=== PATIENT | male | born 1940 | race Caucasian/White ===

== ENCOUNTER 2016-06-25 07:25 | Outpatient (CLI) | payer MEDICARE, BC ==
[~2016-06-25] VITALS: Ht 175.3 cm; Wt 86.4 kg
--- NOTE | ~2016-06-25 | HEMODYNAMI ---
PATIENT:LUBA PARTIDA MEDICAL RECORD: [id number] : 44 LOCATION:D.CAT ADMISSION DATE: 06/25/16 Generatedon:06/25/201610:50 Patient name: LUBA PARTIDA Patient #: [id number] SSN: : 1940 Date of study: 06/25/2016 Page: Of Hemodynamic Procedure Report Patient Data Patient Demographics Procedure consent was obtained First Name: LUBA Gender: Male Last Name: HELGA : 1940 [facility] Initial: L Age: 75 year(s) Patient #: [id number] Race: Additional ID: [id number] Contact details Address: [address] [place] [address] State: [place] City: [facility] Zip code: [address] Past Medical History Allergies: No known allergies Admission Admission Data Admission Date: 06/25/2016 Admission Time: 7:25 Insurance Payor: Medicare, Private health insurance Height (in.): 69 BSA: 2.02 (m2) Height (cm.): 175.26 BMI: 28.06 (kg/m2) Weight (lbs.): 190 Weight (kg.): 86.18 Medications upon Admission Medications Dosage Times Administered Last Remarks per Delivery Day Date and Time Clopidogrel Yes 06/25/2016 0:00 Lab Results Lab Result Date: 06/25/2016 Lab Result Time: 8:00 Biochemistry Name Units Result Min Max Creatinine mg/dl 1.1 --(--*-)-- 0.6 1.3 CBC Name Units Result Min Max Hemoglobin g/dl 11.9 *-(----)-- 13.5 17.5 Procedure Procedure Types Cath Procedure Diagnostic Procedure LHC LHC w/Coronaries w/Grafts PCI Procedure Coronary Stent Initial Miscellaneous Procedures Moderate Sedation up to 30 minutes Procedure Description Procedure Date Procedure Date: 06/25/2016 Procedure Start Time: 10:17 Procedure End Time: 10:44 Procedure Staff Name Function Soto Lopez MD Performing Physician Hero Patel RT Scrub Dario Odonnell RT Scissors Sharpener Amaury Nicole RT Monitor Petra Bailey RN Nurse Procedure Data Cath Procedure Fluoroscopy Diagnostic fluoroscopy Total fluoroscopy Time: time: 11.3 min 11.3 min Diagnostic fluoroscopy Total fluoroscopy dose: dose: 1626 mGy 1626 mGy Contrast Material Contrast Material Type Amount (ml) Isovue 300 226 Entry Location Entry Primary Successful Side Size Upsize Upsize Entry Closure Succes sful Closure Location (Fr) 1 (Fr) 2 (Fr) Remarks Device Remarks Femoral Right 5 Fr 6 Fr Vascade artery Short Closure System Estimated blood loss: 10 ml Diagnostic catheters Device Type Used For End Catheter Placement Cordis 5Fr Pigtail Procedure Catheter (MP) Cordis 5Fr JL 4.0 Procedure Catheter (MP) Cordis 5Fr 3DRC Catheter Procedure (MP) Cordis Infinity 5Fr AR 2 Procedure MOD catheter Procedure Complications No complications Procedure Medications Medication Administration Route Dosage Oxygen NC 2 l/min Lidocaine 2% added to field 20 Heparin Flush Bag added to field 2 bags (1000units/500ml NS) 0.9% NaCl I.V. 100 ml/hr Versed I.V. 1 mg Fentanyl I.V. 50 mcg Versed I.V. 1 mg Fentanyl I.V. 50 mcg Fentanyl I.V. 50 mcg Versed I.V. 1 mg Heparin Bolus I.V. 4000 units Versed I.V. 1 mg Fentanyl I.V. 50 mcg Hemodynamics Rest BSA: 2.02 (m2) HGB: 11.9 (g/dl) O2 Consumption: Estimated: 226.99 (ml/min) O2 Co nsumption indexed: Estimated:112.37 (ml/min/m) Heart Rate: 62 (bpm) Snapshots Pre Cath Intra NCS Post Cath Vital Signs Time Heart Resp SPO2 etCO2 XV5ewrm NIBP (mmHg) Rhythm Pain Sedation Rate (ipm) (%) (mmHg) (mmHg) Status Level (bpm) 10:04:15 59 16 100 0 0 168/77(138) NSR 0 (11) 10(A) , No pain 10:08:27 53 17 99 0 0 139/61(122) NSR 0 (11) 10(A) , No pain 10:12:45 51 18 98 0 0 127/63(105) NSR 0 (11) 10(A) , No pain 10:17:03 52 18 96 0 0 134/55(113) NSR 0 (11) 9(A) , No pain 10:21:21 53 18 95 0 0 128/61(107) NSR 0 (11) 9(A) , No pain 10:25:39 53 17 95 0 0 130/56(106) NSR 0 (11) 9(A) , No pain 10:29:59 55 16 95 0 0 115/49(97) NSR 0 (11) 9(A) , No pain 10:34:14 55 15 93 0 0 118/55(100) NSR 0 (11) 9(A) , No pain 10:38:25 60 16 95 0 0 117/62(97) NSR 0 (11) 9(A) , No pain 10:42:37 64 17 94 0 0 121/59(109) NSR 0 (11) 10(A) , No pain Medications Time Medication Route Dose Verified Delivered Reason Notes Effectiveness by by 10:04:03 Oxygen NC 2 Soto Buffie used for l/min John Bailey RN procedure 10:04:09 Lidocaine 2% added 20ml Soto Soto for local to vial John Lopez MD anesthetic field 10:04:15 Heparin Flush added 2 Soto Soto used for Bag to bags John Lopez MD procedure (1000units/500ml field NS) 10:04:24 0.9% NaCl I.V. 100 Soto Buffie Per physician ml/hr John Bailey RN 10:07:40 Versed I.V. 1 mg Soto Buffie for sedation John Bailey RN 10:07:46 Fentanyl I.V. 50 Soto Buffie for sedation mcg John Bailey RN 10:11:06 Versed I.V. 1 mg Soto Buffie for sedation John Bailey RN 10:11:10 Fentanyl I.V. 50 Soto Buffie for sedation mcg John Bailey RN 10:14:18 Fentanyl I.V. 50 Soto Buffie for sedation mcg John Bailey RN 10:16:20 Versed I.V. 1 mg Soto Buffie for sedation John Bailey RN 10:26:40 Heparin Bolus I.V. 4000 Soto Buffie for verifi ed units John Bailey RN anticoagulation with dr lopez\ 10:34:35 Versed I.V. 1 mg Soto Lambert for sedation John Bailey RN 10:34:40 Fentanyl I.V. 50 Soto Lambert for sedation [facility] John Bailey RN Procedure Log Time Note 9:35:51 Dario Odonnell RT(R) sent for patient. Start room use. 9:47:19 Informed consent obtained and on chart 9:47:53 Time tracking: Regular hours 9:47:56 Plan of Care:Hemodynamics will remain stable., Cardiac rhythm will remain stable., Comfort level will be maintained., Respiratory function will remain adequate., Patient/ family verbilizes understanding of procedure., Procedure tolerated without complication., Recovers from procedure without complications.. 9:54:44 Patient received from Post Procedure Room to [facility] 1 Alert and oriented. Tansferred to table in Supine position. 9:54:45 Warm blankets applied, and jose hugger turned on for patient comfort. 9:54:46 Correct patient and procedure confirmed by team. 9:54:47 ECG and BP/O2 sat monitors applied to patient. 10:03:02 Vital chart was started 10:03:04 Baseline sample Acquired. 10:03:12 Rhythm: sinus rhythm 10:03:14 Full Disclosure recording started 10:04:03 Oxygen 2 l/min NC was given by Petra Bailey RN; used for procedure; 10:04:09 Lidocaine 2% 20ml vial added to field was given by Soto Lopez MD; for local anesthetic; 10:04:15 Heparin Flush Bag (1000units/500ml NS) 2 bags added to field was given by Soto Lopez MD; used for procedure; 10:04:24 0.9% NaCl 100 ml/hr I.V. was given by Petra Bailey RN; Per physician; 10:04:32 H&P Date Dictated: 06/11/2016 Within 30 days and on chart., H&P Addendum completed by physician on day of procedure. (MUST COMPLETE FOR ALL OUTPATIENTS). 10:04:33 Pre-procedure instructions explained to patient. 10:04:34 Pre-op teaching completed and patient verbalized understanding. 10:04:35 Family in waiting room. 10:04:37 Patient NPO since Midnight. 10:04:44 Patient allergic to No known allergies 10:04:46 Is the patient allergic to Iodine/contrast media? No. 10:04:50 Is patient on blood thinner?Yes 10:04:53 ACC The patient was administered the following blood thiners within the last 24 hours: ACCPlavix 10:04:56 Patient diabetic? No. 10:04:58 Previous problem with sedation/anesthesia? No ? 10:04:59 Snore? Yes 10:05:00 Sleep apnea? No 10:05:00 Deviated septum? No 10:05:01 Opens mouth fully? Yes 10:05:02 Sticks out tongue? Yes 10:05:04 Airway obstruction? No ? 10:05:14 Dentures? Yes IN 10:05:18 Pre procedure: right dorsailis pedis pulse 1+ Palpable, but thready & weak; easily obliterated 10:05:20 Patient pain scale 0/10 ?. 10:05:42 IV patent on arrival in left hand with 0.9% NaCl at KVO. 10:05:45 Lab results completed and on chart. 10:05:49 Right groin area was prepped with chlora-prep and draped in sterile fashion 10:05:50 Alarms reviewed by R. N. 10:05:51 Sharps counted by scrub and verified by R.N. 10:07:12 --------ALL STOP TIME OUT------ 10:07:13 Final Timeout: patient, procedure, and site verified with staff and physician. All members of the team are in agreement. 10:07:16 Right groin site verified by team. 10:07:19 Physical assessment completed. ASA score P 2 - A patient with mild systemic disease as per Soto Lopez MD. 10:07:23 Sedation plan: IV Moderate Sedation Versed, Fentanyl 10:07:36 Use device set Femoral Dx 10:07:37 Tegaderm 4 x 4 opened to sterile field. 10:07:38 Acist Manifold opened to sterile field. 10:07:39 Acist Hand Control opened to sterile field. 10:07:40 Versed 1 mg I.V. was given by Petra Bailey RN; for sedation; 10:07:41 Acist Syringe opened to sterile field. 10:07:41 Bag Decanter opened to sterile field. 10:07:42 Cardinal Cath Pack opened to sterile field. 10:07:43 Terumo 5Fr Harlan Sheath opened to sterile field. 10:07:43 St Haroon 260cm J .035 wire opened to sterile field. 10:07:45 Cordis Infinity 5Fr Multipack catheter opened to sterile field. 10:07:46 Fentanyl 50 mcg I.V. was given by Petra Bailey RN; for sedation; 10:11:06 Versed 1 mg I.V. was given by Petra Bailey RN; for sedation; 10:11:10 Fentanyl 50 mcg I.V. was given by Petra Bailey RN; for sedation; 10:12:33 Lab Result : Hemoglobin 11.9 g/dl 10:12:33 Lab Result : Creatinine 1.1 mg/dl 10:12:41 Patient Height : 69 inches 10:12:47 Patient Weight : 190 lbs 10:12:50 Insurance Payor : Private health insurance, Medicare 10:14:18 Fentanyl 50 mcg I.V. was given by Petra Bailey RN; for sedation; 10:16:20 Versed 1 mg I.V. was given by Petra Bailey RN; for sedation; 10:17:38 Procedure started. 10:17:42 Local anesthetic to right femoral artery with Lidocaine 2% by Soto Lopez MD.INITIAL ACCESS ONLY 10:17:51 A 5 Fr sheath was inserted into the Right Femoral artery 10:19:00 A Cordis 5Fr Pigtail Catheter (MP) was advanced over the wire and used for Procedure. 10:19:16 LV gram done using HOOD 10:19:20 Injector settings: Ml/sec: 10, Volume: 20, 10:19:42 EF : 55 % 10:19:44 Catheter exchanged over wire. 10:19:51 A Cordis 5Fr JL 4.0 Catheter (MP) was advanced over the wire and used for Procedure. 10:20:24 LCA angiography performed. 10:20:54 Malcolm Whisper J 300cm 0.014 guide wire opened to sterile field. 10:20:55 Terumo 6Fr Harlan Sheath opened to sterile field. 10:20:56 Fotolia BasixCompak Inflation Kit opened to sterile field. 10:21:02 Catheter exchanged over wire. 10:21:07 A Cordis 5Fr 3DRC Catheter (MP) was advanced over the wire and used for Procedure. 10:21:18 PRINCE to LAD angiography performed. 10:22:39 RCA angiography performed. 10:23:35 SVG to OM angiography performed. 10:23:38 Catheter exchanged over wire. 10:24:06 Sheath upsized to a 6 Fr Short. 10:24:28 A Cordis Infinity 5Fr AR 2 MOD catheter was advanced over the wire and used for Procedure. 10:25:06 SVG to Diag angiography performed. 10:25:29 Catheter removed. 10:25:39 Cordis 6FR XBLAD 4.0 guide catheter opened to sterile field. 10:25:46 Proceeding to intervention. 10:26:40 Heparin Bolus 4000 units I.V. was given by Petra Bailey RN; for anticoagulation; verified with dr lopez\ 10:27:59 6 Fr XBLAD 4 guide catheter was inserted over the wire 10:28:03 whisper wire advanced. 10:28:58 ACC PCI Site: OM2 has 99% stenosis. 10:29:00 ACC Pre-intervention CLARK Flow is 1. 10:30:22 Malcolm Fielder XT J 300cm 0.014 guide wire opened to sterile field. 10:30:35 Wire removed. unable to cross lesion. 10:30:43 fielder XT wire advanced. 10:32:16 Wire advanced across lesion. 10:32:55 The Ramona Sci [place] 2.5 X 15 balloon was advanced and then removed because of failure to cross lesion 10:34:35 Versed 1 mg I.V. was given by Petra Bailey RN; for sedation; 10:34:40 Fentanyl 50 mcg I.V. was given by Petra Bailey RN; for sedation; 10:35:17 Inflation number: 1 A Euphora 1.5 x 15 Balloon was prepped and advanced across the 2nd Ob Tiffany, then inflated to 21 BOBBY for 0:10 (min:sec). 10:35:37 Balloon removed over the wire. 10:36:35 Inflation number: 2 A Ramona Sci [place] 2.5 X 15 balloon was prepped and advanced across the 2nd Ob Tiffany, then inflated to 13 BOBBY for 0:10 (min:sec). 10:36:44 Balloon removed over the wire. 10:38:59 Inflation Number: 3 A Umthunzitronic Resolute 2.25 X 8 stent was prepped and advanced across the 2nd Ob Tiffany. The stent was deployed at 17 BOBBY for 0:10 (min:sec). 10:41:48 ACC Post-intervention CLARK Flow is 3. 10:41:48 Stent catheter was removed intact over wire. 10:41:49 Wire removed. 10:41:50 Guide catheter removed. 10:41:59 Vascade 6/7 Fr Closure Device opened to sterile field. 10:42:19 Sheath removed intact; hemostasis achieved with Vascade Closure System to the Right Femoral artery. 10:42:46 Procedure ended.(Physican Out) 10:42:54 Fluoroscopy time 11.30 minutes. 10:43:00 Fluoroscopy dose: 1626 mGy 10:43:00 Flurop Dose total: 1626 10:43:12 Contrast amount:Isovue 300 226ml. 10:43:14 Sharps counted by scrub and verified by R.N. 10:43:18 Insertion/operative site no bleeding no hematoma. 10:43:21 Post-op/insertion site Right Femoral artery dressed using a 4 x 4 and Tegaderm. 10:43:25 Post right femoral artery:stable, soft, clean and dry 10:43:33 Post Procedure Pulses reassessed and unchanged 10:43:36 Post-procedure physical assessment completed. ASA score P 2 - A patient with mild systemic disease as per Soto Lopez MD. 10:43:38 Post procedure rhythm: unchanged. 10:43:40 Estimated blood loss: 10 ml 10:43:42 Post procedure instruction explained to patient.Patient verbalizes understanding. 10:43:42 Patient needs reinforcement of post procedure teaching. 10:44:14 Procedure type changed to Cath procedure, Diagnostic procedure, LHC, LHC w/Coronaries w/Grafts, PCI procedure, Coronary Stent Initial, Miscellaneous Procedures, Moderate Sedation up to 30 minutes 10:44:39 Procedure and supply charges have been captured, reviewed, submitted and are correct. 10:44:42 Procedure Complication : No complications 10:44:44 Vital chart was stopped 10:44:44 See physician's report for complete and final results. 10:44:46 Report given to Post Procedure Room. 10:44:49 Patient transfered to Post Procedure Room with Stretcher. 10:44:52 Procedure ended. 10:44:52 Full Disclosure recording stopped 10:45:02 ACC-PCI Only Patient was given prescriptions, or instructed by Soto Lopez MD to start/continue the following medications upon discharge: Plavix 10:45:41 End room use (Document Last) Intervention Summary Intervention Notes Time ActionType Lesion and Equipment Action# Pressure Duration Attributes Used 10:32:55 Discard Ramona Balloon Sci [place] 2.5 X 15 balloon 10:35:17 Inflate 2nd Ob Tiffany Euphora 1 21 00:10 balloon 1.5 x 15 Balloon 10:36:35 Inflate 2nd Ob Tiffany Ramona 2 13 00:10 balloon Sci [place] 2.5 X 15 balloon 10:38:59 [address] stent 2nd Ob Tiffany Medtronic 3 17 00:10 Resolute 2.25 X 8 stent Device Usage Item Name Manufacture Quantity Catalog Number Hospital Part Current Mini mal Lot# / Charge Number Stock Stock Serial# Code Tegaderm 4 1 [id number] [id number] [id number] 5 x 4 Acist Acist 1 65347 116800 018920 922668 5 Manifold Medical Systems Inc Acist Hand Acist 1 21246 522678 335599 668638 5 Control Medical Systems Inc Acist Acist 1 07441 884998 364497 913196 20 Syringe Medical Systems Inc Bag Microtek 1 2002S 146224 78043 129599 5 Decanter Medical Inc. Cardinal Cardinal [address] 375653 32136 184522 5 Cath Pack Health Terumo 5Fr Terumo 1 [id number] 554936 611080 320615 [address] Haroon 1 033526 911712 625703 332385 30 260cm J .035 wire Cordis Cardinal 1 [id number] 843939 67785 140856 30 Infinity Health 5Fr Multipack catheter Cordis 5Fr Cardinal 1 798153 5 Pigtail Health Catheter (MP) Cordis 5Fr Cardinal 1 860491 5 JL 4.0 Health Catheter (MP) Malcolm Malcolm 1 [id number] 349180 582209 074755 5 Whisper J Vascular 300cm 0.014 guide wire Terumo 6Fr Terumo 1 [id number] 835640 450786 110730 40 Harlan Sheath Merit Merit 1 [id number] 031650 532916 735304 15 Supercell Medical Inflation Kit Cordis 5Fr Cardinal 1 921974 5 3DRC Health Catheter (MP) Cordis Cardinal 1 [id number] 935867 405498 388082 20 Infinity Health 5Fr AR 2 MOD catheter Cordis 6FR Cardinal 1 [id number] 370806 131139 387909 3 XBLAD 4.0 Health guide catheter Malcolm Malcolm 1 [id number] 215463 384285 715033 5 Fielder XT Vascular J 300cm 0.014 guide wire Ramona Sci Ramona 1 [id number] 138863 076603 172877 1 [id number] VUELOGIC 2.5 X 15 balloon Euphora 1.5 Medtronic 1 [id number] 961171 560915 883371 5 [id number] x 15 Balloon Medtronic Medtronic 1 [id number] 376428 696219 0 [id number] Resolute 2.25 X 8 stent Vascade 10/24 Cardiva 1 [id number] 528364 867445 253121 5 Fr Closure Medical, Device Inc. Signature Audit [place] Stage Time Signature Unsigned Intra-Procedure 06/25/2016 Amaury Nicole 10:50:27 AM RT(R) Signatures Monitor : Amaury Nicole RT Signature : Date : Time : [place] [address] [place] [address]
[~2016-06-25 07:25] MED LIST: AVAPRO300 MG PO; BAYER CHEWABLE81 MG PO; CARDURA1 MG PO; FISH OIL 1,2001 CA1 PO; GLUCOSAMINE HC500 MG PO; HYDROCHLOROTHIA25 MG PO; MULTIPLE VITAMI1 TA1 PO; PLAVIX75 MG PO; PRAVACHOL80 MG PO; PRILOSEC20 MG PO; XALATAN 0.0052.5 ML EACH EYE
[2016-06-25 08:01] VITALS: BP 127/73; Ht 175.3 cm; Wt 86.4 kg
[2016-06-25] MEDS ORDERED: TRICOR145 MG PO (08:01)
[2016-06-25 08:09] LABS: BASOPHILS 0.4 % (0.0-2.0); EOSINOPHILS 3.5 % (0-7); HEMATOCRIT 35.4 % (42.0-54.0); HEMOGLOBIN 11.9 g/dL (13.5-17.5); MCH 32.2 pg (26.0-34.0); MCHC 33.6 g/dL (31.0-37.0); MCV 95.9 fL (80.0-100.0); NEUTROPHILS 74.1 % (40-80); PLATELET COUNT 241 10x3/uL (130-400); RBC 3.69 10x6/uL (4.20-6.10); RDW 12.8 % (11.5-14.5); WBC 5.2 10x3/uL (4.8-10.8)
[2016-06-25 08:19] LABS: CALCIUM 9.6 mg/dL (8.5-10.1); CARBON DIOXIDE 26.7 mmol/L (21.0-32.0); CREATININE - SERUM 1.1 mg/dL (0.6-1.3); POTASSIUM - SERUM 3.7 mmol/L (3.5-5.1)
--- NOTE | 2016-06-25 11:36 | NUR ---
1115 LYING FLAT, ROOM AIR WITH NO RESP DISTRESS. SBRADY RATE 54 W NO C/O CHEST PAIN. PULSES PALP X 4. R GROIN 6F VASCADE C/D/I WITH NO HEMATOMA OR BLEEDING. AT BEDSIDE.
[2016-06-25] MEDS ORDERED: PLAVIX75 MG PO (11:48)
[2016-06-25] MEDS ORDERED: BAYER CHEWABLE81 MG PO (11:48)
--- NOTE | 2016-06-25 12:12 | NUR ---
400CC URINE VOIDED VIA URINAL. ALL VITALS WNL. R GROIN 6F VASCADE C/D/I WITH NO HEMATOMA OR BLEEDING.
--- NOTE | 2016-06-25 12:24 | NUR ---
SANDWICH AND SODA TO BEDSIDE WITH TO ASSIST. VSS WITH CHEST PAIN DENIED. 6 FR VASCADE R/GROIN CDI
--- NOTE | 2016-06-25 12:51 | NUR ---
6 FR VASCADE R/GROIN CDI NO BLEEDING NO HEMATOMA NOTED. CHEST PAIN IS DENIED WITH VSS. AT SIDE WILL MONITOR
--- NOTE | 2016-06-25 13:31 | NUR ---
RESTING WITH EYES CLOSED, ROOM AIR, VITALS ALL WNL. R GROIN 6F VASCADE C/D/I WITH NO HEMATOMA OR BLEEDING.
--- NOTE | 2016-06-25 14:33 | NUR ---
HOB ELEVATED, WILL MONITOR R GROIN FOR BLEEDING. ALL VITALS WNL.
--- NOTE | 2016-06-25 15:23 | NUR ---
PIV REMOVED FROM LEFT HAND WITH BANDAID APPLIED. UP TO BEDSIDE TO DRESS WITH ASSIST FROM . AMBULATED TO BATHROOM TO VOID. R GROIN REMAINS C/D/I WITH NO HEMATOMA OR BLEEDING. D/C INSTRUCTIONS DISCUSSED WITH PATIENT AND FAMILY. WHEELED OUT VIA WHEELCHAIR BY CATH TEAM.
--- NOTE | 2016-06-28 13:59 | OP ---
PATIENT NAME: LUBA PARTIDA MEDICAL RECORD: [id number] :42 LOCATION:D.CAT ADMISSION DATE: SURGEON: SAMANTHA DE LA VEGA MD DATE OF OPERATION: 06/25/2016 PROCEDURES: 1. PTCA stent of the left circumflex. 2. Left heart catheterization. 3. Selective coronary angiography. 4. Vein graft angiography. 5. PRINCE angiography. INDICATION: Angina and coronary artery disease. PROCEDURE IN DETAIL: After informed consent was obtained and after detailed explanation of risks, benefits as well as alternative therapies, the patient elected to proceed with angiogram and angioplasty. The right femoral area was prepped and draped in normal sterile fashion. The right femoral artery was cannulated via modified Seldinger technique with placement of 6-Ukrainian sheath. All catheters exchanged through this sheath. FINDINGS: The left ventriculogram was performed in the standard 30-degree HOOD view reveals preserved cardiac wall motion, ejection fraction 55% to 60%. SELECTIVE CORONARY ANGIOGRAPHY: 1. Left main is with no significant angiographic disease. 2. Left anterior descending is totally occluded. 3. Vein graft to the LAD diagonal is widely patent. 4. PRINCE to the LAD is widely patent. 5. Left circumflex has a high-grade stenosis of the first obtuse marginal as well as the second obtuse marginal, both of these are 95%. 6. Vein graft to the first obtuse marginal is patent. Second obtuse marginal is nongrafted. 7. Right coronary is small and nondominant. PTCA STENT OF THE LEFT CIRCUMFLEX: The second obtuse marginal stent used was a 2.25 x 8 mm Resolute. Result was 0% residual stenosis. OVERALL IMPRESSION: Successful percutaneous transluminal coronary angioplasty stent of the second obtuse marginal that was a non-grafted of the circumflex going from 95% initial stenosis to 0% residual. TRANSINT:[id number] Voice Confirmation ID: [id number] DOCUMENT ID: [id number] SAMANTHA DE LA VEGA MD at 1359 CC: [id number] DICTATION DATE: 06/25/16 1046 MEETING MANAGER: 06/25/16 1240 DEP CLI 06/25/16 [place] [address]
== END 2016-06-25 15:27 | disposition home or self-care (01) ==
LOC: D.CATH 07:25
PROVIDERS: Internal Medicine Interventional Cardiology
DX: I25.119 Atherosclerotic heart disease of native coronary artery with unspecified angina pectoris (principal); Z95.1 Presence of aortocoronary bypass graft
CPT/HCPCS: 93459; C9600

== ENCOUNTER → 2018-07-25 10:11 | Outpatient (CLI) | payer MEDICARE, BC ==
[2016-06-25 08:01] VITALS: BMI 28.1
[~2018-07-25 10:11] MED LIST changes: +LOVENOX60 MG/0.6 SC; +TRICOR145 MG PO
--- NOTE | 2018-07-28 10:54 | ST ---
PATIENT:LUBA PARTIDA MEDICAL RECORD: [id number] SEX: M LOCATION:[facility] ORDER #: ADMISSION DATE: 07/25/18 AGE OF PATIENT: 77 REFERRING PHYSICIAN: INTERPRETING PHYSICIAN: SAMANTHA DE LA VEGA MD DATE OF SERVICE: 07/25/2018 PROCEDURE: Nuclear stress test. INDICATION: Angina and coronary artery disease, hypertension, shortness of breath. He was exercised on standard Lexiscan protocol with 31 mCi of sestamibi injected at peak stress, 11 mCi were used previously for rest images. FINDINGS: Gated SPECT reveals preserved ejection fraction at 54% with decreased thickening and brightening throughout the inferior segments. SPECT imaging: Cardiolite was used as my perfusion agent. There is a mixed perfusion defect inferiorly and apically, it is partially fixed, partially reversible, but there is reversibility throughout the inferior segments as well as the apex itself. OVERALL IMPRESSION: 1. This is an abnormal nuclear stress test, a mixed perfusion defect inferiorly and apically. 2. Gated SPECT reveals preserved ejection fraction greater than 50%. In this patient with ongoing symptomatology, the current scan does suggest the current presence of hemodynamically significant coronary artery disease. We will proceed with coronary angiography as followup study. TRANSINT:[id number] Voice Confirmation ID: [id number] DOCUMENT ID: [id number] SAMANTHA DE LA VEGA MD at 1054 CC: [id number] DICTATION DATE: 07/27/18 1157 DREDGE PUMPER: 07/28/18 0128 DEP CLI 07/25/18 [place] [id number]
== END | disposition home or self-care (01) ==
LOC: D.HCCARDIO 07-22 08:30
PROVIDERS: ATTEND Internal Medicine Interventional Cardiology
DX: I25.110 Atherosclerotic heart disease of native coronary artery with unstable angina pectoris (principal)

== ENCOUNTER 2018-07-30 08:56 | Outpatient (CLI) | payer MEDICARE, BC ==
[~2018-07-30] VITALS: Ht 175.3 cm; Wt 65.9 kg
--- NOTE | ~2018-07-30 | HEMODYNAMI ---
PATIENT:LUBA PARTIDA MEDICAL RECORD: [id number] : 44 LOCATION:D.CAT ADMISSION DATE: 07/30/18 Generatedon:07/30/201810:41 Patient name: LUBA PARTIDA Patient #: [id number] SSN: : 1940 Date of study: 07/30/2018 Page: Of Hemodynamic Procedure Report Patient Data Patient Demographics Procedure consent was obtained First Name: LUBA Gender: Male Last Name: HELGA : 1940 [facility] Initial: L Age: 77 year(s) Patient #: [id number] Race: Additional ID: [id number] Contact details [address]: [address] [place] [address] State: [place] City[facility] Zip code: [address] Past Medical History Allergies Allergen Reaction Date Comments Reported Statins 07/30/2018 Admission Admission Data Admission Date: 07/30/2018 Admission Time: 8:56 Admit Source: Other Procedure Procedure Types Cath Procedure Diagnostic Procedure LHC LHC w/Coronaries w/Grafts Sedation Charges Moderate Sedation up to 15 minutes PCI Procedure Coronary Stent Coronary Stent Initial Procedure Description Procedure Date Procedure Date: 07/30/2018 Procedure Start Time: 10:20 Procedure End Time: 10:40 Procedure Staff Name Function Soto Lopez MD Performing Physician Ela Funes RT Monitor Amaury Nicole RT Scrub Justin Malone RN Nurse William Patel RT Supervisor Rubber Covering Procedure Data Cath Procedure Fluoroscopy Diagnostic fluoroscopy Total fluoroscopy Time: 5.1 time: 5.1 min min Diagnostic fluoroscopy Total fluoroscopy dose: 477 dose: 477 mGy mGy Contrast Material Contrast Material Type Amount (ml) Isovue 300 100 Entry Location Entry Primary Successful Side Size Upsize Upsize Entry Closure Succes sful Closure Location (Fr) 1 (Fr) 2 (Fr) Remarks Device Remarks Femoral Right 5 Fr 6 Fr Exoseal artery Short Estimated blood loss: 10 ml Diagnostic catheters Device Type Used For End Catheter Placement MULTIPACK Pigtail 5 Fr LV Angiography catheter MULTIPACK JL 4.0 5Fr Left Coronary catheter Angiography DIAGNOSTIC JL 5 5Fr Left Coronary catheter ([id number]) Angiography MULTIPACK 3DRC 5Fr Internal mammary catheter arteriography DIAGNOSTIC AR2 MOD 5 Fr SVG Angiography catheter ([id number]) DIAGNOSTIC AR2 MOD 5 Fr SVG Angiography catheter ([id number]) Procedure Complications No complications Procedure Medications Medication Administration Route Dosage 0.9% NaCl I.V. 100 ml/hr Oxygen etCO2 Nasal cannula 2 l/min Heparin Flush Bag added to field 2 bags (1000units/500ml NS) Lidocaine 2% added to field 20 Versed I.V. 1 mg Fentanyl I.V. 50 mcg Versed I.V. 1 mg Fentanyl I.V. 50 mcg Heparin Bolus I.V. 4000 units Integrilin (Bolus I.V. 6.2 ml 2mg/ml) Integrilin (Bolus wasted 3.8 ml 2mg/ml) Plavix P.O. 600 mg Hemodynamics Rest Heart Rate: 72 (bpm) Snapshots Pre Cath Intra NCS Post Cath Vital Signs Time Heart Resp SPO2 etCO2 NIBP Rhythm Pain Sedation Rate (ipm) (%) (mmHg) (mmHg) Status Level (bpm) 10:13:11 84 16 98 0 127/70(97) NSR 0 (11) 10(A) , No pain 10:17:27 72 14 100 26.7 113/57(93) NSR 0 (11) 10(A) , No pain 10:21:41 74 15 100 27.4 111/58(85) NSR 0 (11) 10(A) , No pain 10:25:57 70 18 99 28.9 112/53(77) NSR 0 (11) 9(A) , No pain 10:30:09 75 15 99 20 109/53(74) NSR 0 (11) 9(A) , No pain 10:34:23 71 14 99 19.3 96/43(74) NSR 0 (11) 9(A) , No pain 10:38:33 78 12 100 27.4 92/50(72) NSR 0 (11) 10(A) , No pain Medications Time Medication Route Dose Verified Delivered Reason Notes Effectiveness by by 10:14:01 0.9% NaCl I.V. 100 Justin Justin Per physician ml/hr Kira Malone RN RN 10:14:11 Oxygen etCO2 2 Justin Justin for low 02 sats Nasal l/min Kira Malone cannula RN RN 10:14:22 Heparin Flush added 2 Justin Justin used for Bag to bags Kira Malone procedure (1000units/500ml field RN RN NS) 10:14:33 Lidocaine 2% added 20ml Justin Justin for local to vial Lorlulú Malone anesthetic field RN RN 10:16:20 Versed I.V. 1 mg Justin Justin for sedation Kira Malone RN RN 10:16:30 Fentanyl I.V. 50 Justin Justin for sedation mcg Kira Malone RN RN 10:20:36 Versed I.V. 1 mg Justin Justin for sedation Kira Malone RN RN 10:20:42 Fentanyl I.V. 50 Justin Justin for sedation mcg Kira Malone RN RN 10:32:41 Heparin Bolus I.V. 4000 Justin Justin for units Lorlulú Malone anticoagulation RN RN 10:32:58 Integrilin I.V. 6.2 Justin Justin for (Bolus 2mg/ml) ml Kira Malone antiplatelet RN RN therapy 10:33:10 Integrilin wasted 3.8 Justin Justin to sharp's (Bolus 2mg/ml) ml Kira Malone RN RN 10:40:34 Plavix P.O. 600 Justin Justin for mg Kira Malone antiplatelet RN RN therapy Procedure Log Time Note 9:55:54 Informed consent obtained and on chart 9:55:56 Admit Source: Other 9:56:14 Diagnostic Cath status Elective 9:56:16 William Patel RT(R) sent for patient. Start room use. 9:56:23 Time tracking: Regular hours (M-F 7:00 - 5:00) 9:56:27 Plan of Care:Hemodynamics will remain stable., Cardiac rhythm will remain stable., Comfort level will be maintained., Respiratory function will remain adequate., Patient/ family verbilizes understanding of procedure., Procedure tolerated without complication., Recovers from procedure without complications.. 9:56:43 H&P Date Dictated: 07/01/2018 Greater than 30 days; new H&P dictated by physician. Or brief H&P completed.. 10:06:49 Patient received from Pre/Post Procedure Room to CCL 1 Alert and oriented. Tansferred to table in Supine position. 10:06:51 Warm blankets applied, and jose hugger turned on for patient comfort. 10:06:51 Correct patient and procedure confirmed by team. 10:06:52 ECG and BP/O2 sat monitors applied to patient. 10:06:53 Full Disclosure recording started 10:12:00 Vital chart was started 10:12:06 Rhythm: sinus rhythm 10:12:11 Pre-procedure instructions explained to patient. 10:12:11 Pre-op teaching completed and patient verbalized understanding. 10:12:14 Family in patients room. 10:12:16 Patient NPO since Midnight. 10:12:21 Patient allergic to Statins 10:12:23 Is the patient allergic to Iodine/contrast media? No. 10:12:25 Is patient on blood thinner?No 10:12:26 Patient diabetic? No. 10:12:29 Previous problem with sedation/anesthesia? No ? 10:12:30 Snore? No 10:12:31 Sleep apnea? No 10:12:32 Deviated septum? No 10:12:33 Opens mouth fully? Yes 10:12:33 Sticks out tongue? Yes 10:12:35 Airway obstruction? No ? 10:12:37 Dentures? No ? 10:12:39 Pre procedure: right dorsailis pedis pulse 2+ Normal; easily identifiable; not easily obliterated 10:12:40 Patient pain scale 0/10 ?. 10:12:46 IV patent on arrival in left forearm with 0.9% NaCl at O. 10:12:48 Lab results completed and on chart. 10:12:52 Right groin area was prepped with chlora-prep and draped in sterile fashion 10:12:53 Alarms reviewed by R. N. 10:12:54 Sharps counted by scrub and verified by R.N. 10:13:01 Use device set Femoral Dx 10:13:02 ACIST Syringe (40176) opened to sterile field. 10:13:02 Bag Decanter () opened to sterile field. 10:13:03 Medline Cath Pack ([id number]) opened to sterile field. 10:13:03 DIAGNOSTIC WIRE .035 260cm J wire (653564) opened to sterile field. 10:13:04 ACIST Hand Control (94461) opened to sterile field. 10:13:04 ACIST Manifold (99500) opened to sterile field. 10:13:05 DIAGNOSTIC Multipack 5Fr catheter set (YR3600) opened to sterile field. 10:13:05 Tegaderm 4 x 4 (1626W) opened to sterile field. 10:13:07 SHEATH 5FR [place] ([id number]) opened to sterile field. 10:14:01 0.9% NaCl 100 ml/hr I.V. was administered by Justin Malone RN; Per physician; 10:14:11 Oxygen 2 l/min etCO2 Nasal cannula was administered by Justin Malone RN; for low 02 sats; 10:14:22 Heparin Flush Bag (1000units/500ml NS) 2 bags added to field was administered by Justin Malone RN; used for procedure; 10:14:25 Final Timeout: patient, procedure, and site verified with staff and physician. All members of the team are in agreement. 10:14:27 Right groin site verified by team. 10:14:33 Lidocaine 2% 20ml vial added to field was administered by Justin Malone RN; for local anesthetic; 10:15:24 Maximum allowable Isovue 300 dose 300ml. Physician notified. (300ml for normal creatinines. For patients with creatinine of 1.7 or higher multiply weight(kg) x 5 divided by creatinine.) 10:15:28 Fire Safety Assessment: A--An alcohol-based skin anteseptic being used preoperatively., C--Open oxygen or nitrous oxide is being used., D--An ESU, laser, or fiber-optic light is being used. 10:15:32 Sedation plan: IV Moderate Sedation Medication:Versed, Fentanyl 10:15:36 Physical assessment completed. ASA score P 2 - A patient with mild systemic disease as per Soto Lopez MD. 10:15:52 Baseline sample Acquired. 10:16:20 Versed 1 mg I.V. was administered by Justin Malone RN; for sedation; 10:16:30 Fentanyl 50 mcg I.V. was administered by Justin Malone RN; for sedation; 10:19:56 Procedure started. 10:20:01 Local anesthetic to right femoral artery with Lidocaine 2% by Soto Lopez MD.INITIAL ACCESS ONLY 10:20:12 A 5 Fr sheath was inserted into the Right Femoral artery 10:20:36 Versed 1 mg I.V. was administered by Justin Malone RN; for sedation; 10::42 Fentanyl 50 mcg I.V. was administered by Justin Malone RN; for sedation; 10::25 A MULTIPACK Pigtail 5 Fr catheter was advanced over the wire and used for LV Angiography. 10:23:30 LV gram done using HOOD 10::33 Injector settings: Ml/sec: 10, Volume: 20, 10:23:39 EF : 60 % 10::42 Catheter removed. 10:24:25 A MULTIPACK JL 4.0 5Fr catheter was advanced over the wire and used for Left Coronary Angiography. 10:25:06 Catheter removed. 10:25:38 A DIAGNOSTIC JL 5 5Fr catheter ([id number]) was advanced over the wire and used for Left Coronary Angiography. 10:26:00 Catheter removed. 10:26:40 A MULTIPACK 3DRC 5Fr catheter was advanced over the wire and used for Internal mammary arteriography. TO LAD 10:27:58 Catheter removed. 10:29:06 A DIAGNOSTIC AR2 MOD 5 Fr catheter ([id number]) was advanced over the wire and used for SVG Angiography. TO OM 10:29:14 A DIAGNOSTIC AR2 MOD 5 Fr catheter ([id number]) was advanced over the wire and used for SVG Angiography. TO DIAG? 10:29:17 Catheter removed. 10:29:28 Use device set TAUTH PCI 10:29:30 SHEATH 6FR [place] (MUE544) opened to sterile field. 10:29:33 INFLATOR Merit BasixCompak (GC3263) opened to sterile field. 10:29:38 CHOICE PT Extra Support 182cm wire ([id number]) opened to sterile field. 10:30:31 GUIDE 6FR EBU 4.5 catheter ([id number]) opened to sterile field. 10:30:41 Sheath upsized to a 6 Fr Short. 10:30:53 6 Fr EBU 4.5 guide catheter was inserted over the wire 10:31:37 CHOICE PT ES wire advanced. 10:32:41 Heparin Bolus 4000 units I.V. was administered by Justin Malone RN; for anticoagulation; 10:32:58 Integrilin (Bolus 2mg/ml) 6.2 ml I.V. was administered by Justin Malone RN; for antiplatelet therapy; 10:33:10 Integrilin (Bolus 2mg/ml) 3.8 ml wasted was administered by Justin Malone RN; to sharp's; 10:33:36 The INTEGRITY RX 3.0 x 12 stent ([id number]) was advanced then removed because of failure to cross lesion 10:35:03 Inflate balloon Inflation number: 1 A EUPHORA 2.5 x 12 Balloon ([id number]) was prepped and advanced across the Dist CX, then inflated to 13 BOBBY for 0:09 (min:sec). 10:36:00 Balloon removed over the wire. 10:36:50 Place stent Inflation Number: 2 A INTEGRITY RX 3.0 x 12 stent ([id number]) was prepped and advanced across the Dist CX. The stent was deployed at 17 BOBBY for 0:05 (min:sec). 10:37:12 Stent catheter was removed intact over wire. 10:37:12 Wire removed. 10:37:12 Guide catheter removed. 10:37:47 Sheath removed intact; hemostasis achieved with Exoseal to the Right Femoral artery. 10:37:49 Procedure ended.(Physican Out) 10:38:01 Fluoroscopy time 05.10 minutes. 10:38:04 Flurop Dose total: 477 10:38:04 Fluoroscopy dose: 477 mGy 10:38:07 Contrast amount:Isovue 300 100ml. 10:38:09 Sharps counted by scrub and verified by R.N. 10:38:10 Insertion/operative site no bleeding no hematoma. 10:38:13 Post-op/insertion site Right Femoral artery dressed using a 4 x 4 and Tegaderm. 10:38:16 Post right femoral artery:stable, clean and dry 10:38:18 Post Procedure Pulses reassessed and unchanged 10:38:20 Post-procedure physical assessment completed. ASA score P 2 - A patient with mild systemic disease as per Soto Lopez MD. 10:38:21 Post procedure rhythm: unchanged. 10:38:24 Estimated blood loss: 10 ml 10:38:25 Post procedure instruction explained to patient.Patient verbalizes understanding. 10:38:25 Patient needs reinforcement of post procedure teaching. 10:38:51 Procedure type changed to Cath procedure, Diagnostic procedure, LHC, LHC w/Coronaries w/Grafts, Sedation Charges, Moderate Sedation up to 15 minutes, PCI procedure, Coronary Stent, Coronary Stent Initial 10:38:55 Procedure Complication : No complications 10:38:57 See physician's report for complete and final results. 10:39:31 EXOSEAL 6Fr (EX600) opened to sterile field. 10:40:13 Procedure and supply charges have been captured, reviewed, submitted and are correct. 10:40:24 Vital chart was stopped 10:40:26 Report given to Pre/Post Procedure Room. 10:40:30 Patient transfered to Pre/Post Procedure Room with Stretcher. 10:40:34 Plavix 600 mg P.O. was administered by Justin Malone RN; for antiplatelet therapy; 10:40:38 Procedure ended. 10:40:38 Full Disclosure recording stopped 10:40:40 End room use (Document Last) Intervention Summary Intervention Notes Time ActionType Lesion and Equipment Action# Pressure Duration Attributes Used 10:33:36 Discard INTEGRITY RX Stent 3.0 x 12 stent ([id number]) 10:35:03 Inflate Dist CX EUPHORA 2.5 1 13 00:09 balloon x 12 Balloon ([id number]) 10:36:50 Place stent Dist CX INTEGRITY RX 2 17 00:05 3.0 x 12 stent ([id number]) Device Usage Item Name Manufacture Quantity Catalog Number Hospital Part Current Mini mal Lot# / Charge Number Stock Stock Serial# Code ACIST Acist 1 14225 254956 652478 992956 20 Syringe Medical (01247) Systems Inc Bag Decanter Microtek 1 2001S 625439 82652 365215 5 () Medical Inc. Medline Cath Medline 1 [id number] 616362 20059 253537 5 Pack ([id number]) DIAGNOSTIC [place] 1 139356 343796 017879 444832 30 WIRE .035 260cm J wire (767106) ACIST Hand Acist 1 08067 831678 134844 625147 5 Control Medical (80245) Systems Inc ACIST Acist 1 23452 446618 366827 915730 5 Manifold Medical (80082) Systems Inc DIAGNOSTIC Cardinal 1 CM7042 813183 70750 105057 30 [place]abe 5Fr catheter set (XK2850) Tegaderm 4 x 3M 1 1626W 075781 124820 541173 5 4 (1626W) SHEATH 5FR Terumo 1 CNC839 075962 348633 444262 5 [place] (WYD613) MULTIPACK Cardinal 1 362379 5 Pigtail 5 Fr Health catheter MULTIPACK JL Cardinal 1 835477 5 4.0 5Fr Health catheter DIAGNOSTIC Cardinal 1 [id number] 473214 144361 636430 5 JL 5 5Fr Health catheter (074954P) MULTIPACK Cardinal 1 890579 5 3DRC 5Fr Health catheter DIAGNOSTIC Cardinal 1 [id number] 109980 844826 054662 20 AR2 MOD 5 Fr Health catheter (883678C) SHEATH 6FR Terumo 1 VMB624 498739 635825 636825 40 [place] (XPS750) INFLATOR Merit 1 GD5331 706563 387957 116506 15 [facility] Medical BasixCompak (FH7662) CHOICE PT [place] 1 [id number] 114026 061242 042718 5 Extra Scientific Support 182cm wire ([id number]) GUIDE 6FR Medtronic 1 [id number] 691308 58544 988101 0 EBU 4.5 catheter (KE1BMO76) INTEGRITY RX Medtronic 1 [id number] 555983 154066 038522 5 [id number] 3.0 x 12 stent ([id number]) EUPHORA 2.5 Medtronic 1 [id number] 001206 225997 453815 5 [id number] x 12 Balloon ([id number]) EXOSEAL 6Fr Cardinal 1 EX600 494684 856013 227252 10 (EX600) Health Signature Audit [place] Stage Time Signature Unsigned Intra-Procedure 07/30/2018 Ela 10:41:20 AM Counts RT(R) Signatures Monitor : Ela Signature : Counts RT Date : Time : [facility] [address] [place] [address]
[~2018-07-30 08:56] MED LIST changes: -LOVENOX60 MG/0.6 SC
[2018-07-30] MEDS ORDERED: LOVENOX60 MG/0.6 SC (09:20)
[2018-07-30 09:26] VITALS: BP 111/68; Ht 175.3 cm; Wt 65.9 kg
[2018-07-30 09:46] LABS: BASOPHILS 0.2 % (0-2); EOSINOPHILS 1.4 % (0-7); HEMATOCRIT 31.5 % (42.0-54.0); HEMOGLOBIN 10.5 g/dL (13.5-17.5); IMMATURE GRANULOCYTES 0.5 % (0-5); LYMPHOCYTES 11.7 % (15-50); MCH 31.7 pg (26.0-34.0); MCHC 33.3 g/dL (31.0-37.0); MCV 95.2 fL (80.0-100.0); MONOCYTES 17.8 % (2-11); NEUTROPHILS 68.4 % (40-80); PLATELET COUNT 245 10x3/uL (130-400); RBC 3.31 10x6/uL (4.20-6.10); RDW 14.7 % (11.5-14.5); WBC 4.4 10x3/uL (4.8-10.8)
[2018-07-30 09:54] LABS: ANION GAP 14.3 mmol/L (8-16); CALCIUM 10.1 mg/dL (8.5-10.1); CARBON DIOXIDE 22.5 mmol/L (21.0-32.0); CREATININE - SERUM 1.1 mg/dL (0.6-1.3); POTASSIUM - SERUM 3.8 mmol/L (3.5-5.1)
[2018-07-30] MEDS ORDERED: PLAVIX75 MG PO (11:04)
--- NOTE | 2018-07-30 11:05 | NUR ---
2L NC, NO RESP DISTRESS. RIGHT GROIN 6F EXOSEAL CDI, NO BLEEDING OR HEMATOMA NOTED. NO C/O PAIN OR NAUSEA. VSS. FAMILY AT BEDSIDE, CALL LIGHT WITHIN REAACH.
--- NOTE | 2018-07-30 11:35 | NUR ---
RESTING QUIETLY WITH EYES CLOSED. RIGHT GROIN 6F EXOSEAL CDI, NO BLEEDING OR HEMATOMA NOTED. NO C/O OR NEEDS VOICED. VSS. WILL CONTINUE TO MONITOR.
--- NOTE | 2018-07-30 11:50 | NUR ---
CONTINUES TO REST COMFORTABLY WITH NO C/O. RIGHT GROIN 6F EXOSEAL [place], NO BLEEDING OR HEMATOMA NOTED. 2L NC WITH NO RESP DISTRESS. VSS. CALL LIGHT WITHIN REACH.
--- NOTE | 2018-07-30 13:08 | NUR ---
PT IS ALERT, DENIES ANY C/O. DRESSING TO RIGHT GROIN IS CDI, AREA IS SOFT AND NONTENDER. PEDAL PULSES PALPABLE. RESP WITH EASE ON O2 AT 2LPM VIA NC. HOB IS FLAT, CALL LIGHT IN REACH. VSS.
--- NOTE | 2018-07-30 13:35 | NUR ---
HOB ELEVATED 30 DEGREES. RIGHT GROIN 6F EXOSEAL CDI, NO BLEEDING OR HEMATOMA NOTED. SIPPING ON DRINK AND EATING SANDWICH WITH NO C/O NAUSEA. VSS. WILL CONTINUE TO MONITOR CLOSELY.
--- NOTE | 2018-07-30 14:15 | NUR ---
LEFT PIV D/C'D WITH CATHETER INTACT, BAND AID TO SITE. RIGHT GROIN 6F EXOSEAL CDI, NO BLEEDING OR HEMATOMA NOTED. UP TO BEDSIDE TO GET DRESSED.
--- NOTE | 2018-07-30 14:28 | NUR ---
DISCHARGE INSTRUCTIONS ALONG WITH PLAVIX PRESCRIPTION GIVEN TO PT AND . BOTH VERBALIZED UNDERSTANDING.
--- NOTE | 2018-07-30 14:40 | NUR ---
TAKEN OUT VIA WHEELCHAIR BY CATH CANVASSING MANAGER. LEFT FACILITY WITH FAMILY AND ALL PERSONAL BELONGINGS.
--- NOTE | 2018-08-01 14:57 | HP ---
PATIENT: LUBA ZABALA MEDICAL RECORD: [id number] ACCOUNT: [id number] LOCATION:[facility] : 44 ADMISSION DATE: 07/30/18 PCP: CHRISTIANA GOETZ MD HISTORY AND PHYSICAL EXAMINATION ADMITTING DIAGNOSES: 1. Angina. 2. Coronary artery disease. 3. Previous percutaneous transluminal coronary angioplasty stent. 4. Hypertension. 5. Hyperlipidemia. HISTORY OF PRESENT ILLNESS: Mr. Zabala presents with increasing anginal symptomatology just like that of his previous angina, status post PTCA stent in the past. PHYSICAL EXAMINATION: GENERAL APPEARANCE: Well-nourished, well-developed, appears stated age. Level of distress, comfortable. PSYCHIATRIC: Mental status, alert, normal affect. Orientation, oriented to time, place and person. EYES: Lids and conjunctiva, noninjected. No discharge, no pallor. ENT: Lips, teeth, gums, normal dentition. Oropharynx, no cyanosis, no pallor. NECK: Carotid arteries, bilateral normal upstroke, no bruits, no thrills. JUGULAR VEINS: No jugular venous pressure or distention. CERVICAL LYMPH NODES: Nontender, nonenlarged. THYROID: Not enlarged. Nontender. No nodules. LUNGS: Respiratory effort, unlabored. CHEST: Normal curvature. No thoracic deformity. No chest wall tenderness. Percussion, resonant. Auscultation, clear. No wheezes, no rales, no rhonchi. CARDIOVASCULAR: Precordial exam, nondisplaced. No heaves or pericardial thrills. Rate and rhythm, regular. Heart sounds, normal S1, normal S2. No S3, no gallop, no rub. Systolic murmur, not heard. Diastolic murmur, not heard. EXTREMITIES: No cyanosis, no edema. Peripheral pulses, full and equal in all extremities, except as noted. No bruits appreciated. ABDOMEN: Soft, nondistended. Normal aorta. No bruit. Nontender. No masses. Liver, nontender, no hepatomegaly. Spleen, nontender, no splenomegaly. MUSCULOSKELETAL: No joint tenderness. No joint swelling. No erythema. NEUROLOGICAL: Normal gait, normal strength, normal tone. SKIN: Warm and dry. OVERALL IMPRESSION: Anginal symptomatology. We will proceed with coronary angiography. Further care depends upon findings of the angiography. TRANSINT:[id number] Voice Confirmation ID: [id number] DOCUMENT ID: [id number] HISTORY AND PHYSICAL [id number] LUBA ZABALA JEFFREY MD at 1457 CC: [id number] DICTATION DATE: 07/30/18 1010 MANAGER SERVICING: 07/30/18 1033 DEP CLI 07/30/18 [place] [id number] [place] [id number]
--- NOTE | 2018-08-01 14:57 | OP ---
PATIENT NAME: LUBA PARTIDA MEDICAL RECORD: [id number] :44 LOCATION:D.CAT ADMISSION DATE: SURGEON: SAMANTHA DE LA VEGA MD DATE OF OPERATION: 07/30/2018 PROCEDURES: 1. PTCA stent left circumflex. 2. Left heart catheterization. 3. Selective coronary angiography. 4. Left ventriculogram. 5. Vein graft angiography. 6. PRINCE angiography. INDICATION: Angina and coronary artery disease. PROCEDURE PERFORMED: After informed consent was obtained and after detailed description of risks, benefits as well as alternative therapies, the patient elected to proceed with angiogram and angioplasty. The right femoral area was prepped and draped in normal sterile fashion. Right femoral artery was cannulated via modified Seldinger technique with placement of 6-Turkish sheath. All catheters exchanged through this sheath. FINDINGS: The left ventriculogram and performed in standard 30-degree HOOD view, reveals good cardiac wall motion throughout all segments. Overall ejection fraction estimated 60%. SELECTIVE CORONARY ANGIOGRAPHY: 1. Left main is with no significant angiographic disease. 2. Left anterior descending is totally occluded. 3. PRINCE to the LAD is widely patent. 4. Vein graft to the LAD diagonal is widely patent. 5. The left circumflex itself is widely patent. The obtuse marginal was totally occluded. 6. Vein graft to the obtuse marginal is widely patent. 7. In the mid portion of the circumflex are previously placed stents with 99% in-stent restenosis. 8. Right coronary is small, nondominant. PTCA STENT OF THE CIRCUMFLEX: The stent used was 3.0 x 12 mm Integrity. Result was 0% residual stenosis. OVERALL IMPRESSION: Successful PTCA and stent of the left circumflex going from 95% to 99% initial stenosis to 0% residual. TRANSINT:[id number] Voice Confirmation ID: [id number] DOCUMENT ID: [id number] SAMANTHA DE LA VEGA MD at 1457 CC: [id number] DICTATION DATE: 07/30/18 1041 IT ARCHITECTURE ANALYST: 07/30/18 1113 DEP CLI 07/30/18 [place] [address]
== END 2018-07-30 14:40 | disposition home or self-care (01) ==
LOC: D.CATH 08:56 → D.LAB 13:00 → D.CATH 14:40
PROVIDERS: ATTEND Internal Medicine Interventional Cardiology
DX: I25.119 Atherosclerotic heart disease of native coronary artery with unspecified angina pectoris (principal)